=== PATIENT | female | born 1980 | race American Indian/Alaskan Native ===

== ENCOUNTER 2017-06-11 05:57 | Day surgery (SDC) | payer OTHER ==
[2017-06-11] MEDS ORDERED: NACL 0.9% 1000 ML 1,000 ML IV SCH (06:00)
[2017-06-11] MEDS ORDERED: VERSED IV NR (06:00)
[2017-06-11] MEDS ORDERED: PEPCID PO NR (06:00)
--- NOTE | 2017-06-11 07:01 | Anesthesia Day of Surgery ---
Anesthesia Day of Surgery - Day of Surgery Patient Examined: Yes Patient H&P Reviewed: Yes Patient is NPO: Yes
[2017-06-11] MEDS ORDERED: DILAUDID IV PRN (07:02)
[2017-06-11] MEDS ORDERED: PERCOCET 5/325 PO PRN (07:02)
[2017-06-11] MEDS ORDERED: ZOFRAN IV PRN (07:02)
--- NOTE | 2017-06-11 07:02 | Anesthesia Consultation ---
Anesthesia Consult and Med Hx Date of service: 06/11/17 - Airway Anesthetic Teeth Evaluation: Good ROM Head & Neck: Adequate Mental/Hyoid Distance: Adequate Mallampati Class: Class II Intubation Access Assessment: Probably Good - Pulmonary Exam CTA: Yes - Cardiac Exam Cardiac Exam: RRR - Pre-Operative Health Status ASA Pre-Surgery Classification: ASA2 Proposed Anesthetic Plan: General - Pulmonary Hx Smoking: Yes (2 CIAG PER DAY) Hx Sleep Apnea: No (BJORN PRE SCREEN NEGATIVE) - Cardiovascular System Hx Hypertension: No - Central Nervous System Hx Psychiatric Problems: Yes (anxiety, depression) - Endocrine Hx Non-Insulin Dependent Diabetes: No (pre-diabetes) - Hematic Hx Anemia: Yes (NOT RECENT) - Other Systems Hx Cancer: No Hx Obesity: Yes
[2017-06-11] MEDS ORDERED: NACL BACTERIOSTATIC INFILTRATI ONE (07:11)
[2017-06-11] MEDS ORDERED: ANCEF/STERILE WATER 2 GM/20 ML IV NR (07:12)
[2017-06-11] MEDS ORDERED: SUBLIMAZE ONE (07:15)
[2017-06-11] MEDS ORDERED: XYLOCAINE MPF 2% ONE (07:15)
[2017-06-11] MEDS ORDERED: DIPRIVAN 10 MG/ML IV ONE (07:15)
[2017-06-11] MEDS ORDERED: DECADRON ONE (07:54)
[2017-06-11] MEDS ORDERED: ZOFRAN ONE (07:54)
[2017-06-11] MEDS ORDERED: OMNIPAQUE (300 MG) IV ONE (08:07)
[2017-06-11] MEDS ORDERED: WATER FOR IRRIG STERILE IR ONE ×2 (08:07)
--- NOTE | 2017-06-11 08:47 | Short Stay Summary ---
Short Stay Documentation - History H&P: obtained from office - Allergies and Medications Current Medications: Allergies No Known Allergies Allergy (Verified 06/06/17 16:59) Home Medications Medication Instructions Recorded Confirmed Last Taken Type Escitalopram [Lexapro] 10 mg PO DAILY 06/06/17 06/06/17 Unknown History Active Medications Cefazolin Sodium (Ancef/Sterile Water 2 Gm/20 Ml) 2 gm IV PREOP NR Stop: 06/11/17 23:00 Famotidine (Pepcid) 20 mg PO PREOP NR Stop: 06/11/17 23:59 Last Admin: 06/11/17 07:15 Dose: 20 mg Hydromorphone HCl (Dilaudid) 0.5 mg IV Q10MIN PRN PRN Reason: Pain , Severe (7-10) Stop: 06/14/17 07:03 Sodium Chloride (Nacl 0.9% 1000 Ml) 1,000 mls @ 75 mls/hr IV DIRECT LILLIAN Last Admin: 06/11/17 07:15 Dose: 75 mls/hr Midazolam HCl (Versed) 2 mg IV PREOP NR Stop: 06/11/17 23:59 Last Admin: 06/11/17 07:25 Dose: 2 mg - Brief post op/procedure progress note Date of procedure: 06/11/17 Pre-op diagnosis: left ureteral stone Post-op diagnosis: same Procedure: cysto, rpg, left ureteroscopy, basket stone, stent with external string Anesthesia: GETA (cysto, rpg, left ureteroscopy, basket stone, stent) Surgeon: NIKKI CARRION Estimated blood loss: none Pathology: none Condition: stable - Hospital course Hospital course: STONE,norco,cipro, & post op info on chart - Disposition Condition at discharge: Stable Disposition: DC-01 TO HOME OR SELFCARE
--- NOTE | 2017-06-11 09:25 | Post Anesthesia Evaluation ---
- Post Anesthesia Evaluation Patient Participated: Yes Airway Patent: Yes Stable Respiratory Function: Yes Nausea/Vomiting: No Temp > 96.8F: Yes Pain Manageable: Yes Adequeate Hydration: Yes Anesthesia Complications: No Block Receding Appropriately: Not Applicable Patient on Ventilator: No
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
--- NOTE | 2017-06-11 11:25 | Fluoroscopy Report ---
Retrograde pyelogram: Ureteral calculus. Prior to injection of contrast calculi are identified bilaterally consistent with urinary tract. Injection of contrast on the right side demonstrate that the calculus appears to lie in a lower pole calyx. The remainder of the right intrarenal collecting system and ureter are well opacified and appear unremarkable. Injection of contrast on the left demonstrates the calculus to lie in the proximal ureter. A ureteral scope was passed with a wire. An internal nephrostomy tube was left in place. The calculus is no longer identified. Impression: Removal of left ureteral calculus. Right renal calculus.
[2017-06-11 11:27] VITALS: BP 114/76
== END 2017-06-11 11:24 | disposition home or self-care (01) ==
LOC: OR 05:57
PROVIDERS: ATTEND Urology
DX: N20.1 Calculus of ureter (principal); F41.9 Anxiety disorder, unspecified; F32.9 Major depressive disorder, single episode, unspecified; F17.210 Nicotine dependence, cigarettes, uncomplicated; E66.9 Obesity, unspecified; Z68.30 Body mass index [BMI] 30.0-30.9, adult; Z79.899 Other long term (current) drug therapy
CPT/HCPCS: 52332; 52352; 74420; 81025; 82962; A4217; C1726; C1758; C1769; C2617; J0690; J1100; J2250; J2405; J2704; J3010; J7030; Q9967